=== PATIENT | female | born 1970 | race Caucasian/White ===

== ENCOUNTER 2025-07-29 15:09 | Outpatient (AMB) | payer OTHER, SELFPAY ==
--- OUTSIDE RECORDS SUMMARY | 2025-07-29 18:15 | XMS_ITS | Clinical Summary ---
Author Organization [facility] Address [address] [place] [address] Care Team Providers Care Plate Printer Name Role Phone Alexa Paulino MD Primary Care Provider [phone] Allergies No known active allergies Medications tamoxifen (NOLVADEX/SOLTAM OX) 20 MG tablet Take 20 mg by mouth daily Active traZODone (DESYREL) 50 MG tablet TAKE 1/2 TABLET AT BEDTIME INCREASE TO 1 TABLETS TOLERATED 1 9 Active hydrochlorothiaz sandra (HYDRODIURIL) 12.5 MG tablet Take 12.5 mg by mouth daily. 0 Active oxybutynin (DITROPAN) 5 MG tablet 1 TABLET BY MOUTH 2 TIMES A DAY NEEDED HOT FLASHES 1 Active OMEprazole (PriLOSEC) 40 MG capsule 1 Active amoxicillin-clav ulanate (AUGMENTIN) 875-125 MG per tabletIndication s:Acute otitis media, unspecified otitis media type Take 1 tablet by mouth 2 (two) times a day. 20 tablet 1 Active Active Problems No known active problems Social History Tobacco Use Types Packs/Day Years Used Date Smoking Tobacco: Never Smokeless Tobacco: Never Alcohol Use Standard Drinks/Week Comments Not Currently 0 (1 standard drink = 0.6 oz pur e alcohol) Comments No Sex and Gender Information Value Date Recorded Sex Assigned at Not on file Legal Sex Female 5:57 PM EST Gender Identity Not on file Sexual Orientation Not on file Last Filed Vital Signs Vital Sign Reading Time Taken Comments Blood Pressure 142/86 01/13/2021 6:30 PM EST Pulse 108 01/13/2021 6:30 PM EST Temperature 36.6 C (97.9 F) 01/13/2021 6:30 PM EST Respiratory Rate 16 09/22/2019 6:05 PM EST Oxygen Saturation 100% 01/13/2021 6:30 PM EST Inhaled Oxygen Concentration - - Weight 86.2 kg (190 lb) 01/13/2021 6:30 PM EST Height 167.6 cm (5' 6 ) 01/13/2021 6:30 PM EST Body Mass Index 30.67 01/13/2021 6:30 PM EST Plan of Treatment Health Maintenance Due Date Last Done Comments Hepatitis C Virus Screening 1968 HIV Screening 1981 DTaP/Tdap/Td Vaccines (1 - Tdap) 1987 Hepatitis B Vaccines (1 of 3 - 19+ 3-dose series) 1987 Pap Smear (Ages 21-65) 1989 Mammogram 2008 Colonoscopy 2013 Pneumococcal Vaccines 50+ (1 of 1 - PCV) 2018 Zoster (Shingles) Vaccine (1 of 2) 2018 Influenza Vaccine 06/19/2025 COVID-19 Vaccine (2024- season) 2025 08/26/2021, 02/16/2021, 01/26/2021 [facility] Care Teams Plate Printer Relationship Specialty Start Date End Date Alexa Paulino MD [address] [place] [id number] PCP - General Internal Medicine 09/22/19
== END 2025-07-29 15:12 | disposition home or self-care (01) ==
LOC: HO.HMGAL 15:09
PROVIDERS: Visit Provider Registered Nurse Emergency
DX: J30.89 Other allergic rhinitis (principal)
CPT/HCPCS: 95117; 95165

== ENCOUNTER 2025-09-09 15:48 | Outpatient (AMB) | payer OTHER, SELFPAY ==
--- OUTSIDE RECORDS SUMMARY | 2025-09-09 21:54 | XMS_ITS | Clinical Summary ---
Author Organization [facility] Address [address] [place] [address] Care Team Providers Care Stock Repairer Name Role Phone Alexa Paulino MD Primary Care Provider [phone] Allergies No known active allergies Medications tamoxifen [...] 50+ (1 of 1 - PCV) 2018 RSV Vaccine 50 years and old er and Patients (1 - Risk 50-74 years 1-dose series) 2018 Zoster (Shingles) Vaccine (1 of 2) 2018 Influenza Vaccine 06/19/2025 COVID-19 Vaccine ( season) 2025 08/26/2021, 02/16/2021, 01/26/2021 [place] [id number] [facility] Care Teams Stock Repairer Relationship Specialty Start Date End Date Alexa Paulino MD [address] [place] [address] PCP - General Internal Medicine 09/22/19
== END 2025-09-09 15:52 | disposition home or self-care (01) ==
LOC: HO.HMGAL 15:48
PROVIDERS: PCP Internal Medicine; Visit Provider Registered Nurse Emergency
DX: J30.89 Other allergic rhinitis (principal)
CPT/HCPCS: 95117; 95165

== ENCOUNTER 2025-10-12 15:33 | Outpatient (AMB) | payer OTHER, SELFPAY ==
--- OUTSIDE RECORDS SUMMARY | 2025-10-12 20:06 | XMS_ITS | Clinical Summary ---
Author Organization [facility] Address [address] [place] [address] Care Team Providers Care High School Counselor Name Role Phone Alexa Paulino MD Primary Care Provider [phone] Allergies No known active allergies Medications tamoxifen [...] 08/26/2021, 02/16/2021, 01/26/2021 [place] [id number] [facility] Care Teams High School Counselor Relationship Specialty Start Date End Date Alexa Paulino MD [address] [place] [address] PCP - General Internal Medicine 09/22/19
== END 2025-10-12 15:34 | disposition home or self-care (01) ==
LOC: HO.HMGAL 15:33
PROVIDERS: PCP Internal Medicine; Visit Provider Registered Nurse Emergency
DX: J30.89 Other allergic rhinitis (principal)
CPT/HCPCS: 95117; 95165